=== PATIENT | female | born 1990 | race Hispanic/Latino ===

== ENCOUNTER 2020-10-27 21:45 | Emergency (ER) | payer MEDICAID, SELFPAY ==
[2020-10-27 21:50] VITALS: BP 119/72; PULSE 85; RESP 18; TEMP 36.6; O2SAT 100
--- NOTE | 2020-10-27 23:38 | PC.NURSE ---
Just informed by ED triage tech that she had been unable to draw labs.
[2020-10-28] LABS: Basophils Absolute Auto 0.1 K/mm3 (0.0-0.1); Basophils Percent Auto 0.5 % (0.2-1.2); Eosinophils Absolute Auto 0.2 K/mm3 (0-0.3); Eosinophils Percent Auto 1.9 % (0-4.4); Hematocrit 38.6 % (37.0-47.0); Immature Granulocyte Absolute 0.05 K/mm3 (0.00-0.031); Immature Granulocyte Percent A 0.4 % (0-0.5); Lymphocytes Percent Auto 30.9 % (18.3-44.2); Mean Corpuscular HGB Conc 33.7 g/dl (32-36); Mean Corpuscular Volume 91.9 fl (80-100); Mean Platelet Volume 10.7 fl (7.4-10.4); Monocytes Absolute Auto 0.7 K/mm3 (0.1-0.6); Monocytes Percent Auto 6.3 % (2.6-8.5); Neutrophils Absolute Auto 6.8 K/mm3 (1.3-6.7); Platelet Count Result 249 k/mm3 (150-375); Red Cell Distribution Width 12.5 % (11.5-14.5); White Blood Count 11.3 K/mm3 (4.5-10.0)
[2020-10-28 00:03] LABS: Add Urine Microscopic? YES; Appearance Urine Clear (Clear); Bilirubin Urine Negative (Negative); Blood Urine 3+ (Negative); Color Urine Straw (Yellow); Glucose Urine UA Negative (Negative); Ketones Urine Negative (Negative); Leukocyte Esterase Ur Negative LEU/UL (Negative); Nitrate Urine Negative (Negative); Protein Urine Negative (Negative); RBC Urine 0-2 /hpf (0-2); Specific Grav Ur 1.011 (1.001-1.035); Squamous Epithelial Cell Urine Rare /hpf (Few); Urobilinogen Urine Negative mg/dL (<2.0); WBC Urine 0-3 /hpf
[2020-10-28 00:10] LABS: Alanine Aminotransferase 12 U/L (4-35); Albumin Level 4.2 g/dL (3.5-5.1); Alkaline Phosphatase 54 U/L (38-126); Anion Gap 8 mmol/L (8-16); Aspartate Amino Transferase 20 U/L (14-36); Bilirubin,Total 0.3 mg/dL (0.2-1.3); Blood Urea Nitrogen 4 mg/dL (7-17); Carbon Dioxide 23 mmol/L (22-30); Chloride 105 mmol/L (98-107); Estimated Glomerular Filt Rate > 60; Glucose 97 mg/dL (65-110); Sodium 136 mmol/L (137-145)
--- NOTE | 2020-10-28 01:33 | PC.NURSE ---
EDP at bedside for ultrasound.
--- NOTE | 2020-10-28 01:39 | ED.GENADULT ---
HPI - General Adult General Chief complaint: Vaginal Bleeding Stated complaint: 14 weeks preg, bleeding Time Seen by Provider: 10/28/20 01:23 History of Present Illness HPI narrative: Patient is a 30-year-old female that presents the emergency department with chief complaint of vaginal bleeding. Patient reports she had some bleeding that was bright red blood was in the toilet and then she noticed blood on the toilet paper whenever she wiped. Patient states that this is her second the first 1 ended in a spontaneous miscarriage. The patient denies cramping reports that she has seen an INDUSTRIAL COMMERCIAL GROUNDSKEEPER but has not had an ultrasound as an outpatient. Patient states that she has no nausea no diarrhea. Related Data Allergies Allergy/AdvReac Type Severity Reaction Status Date / Time No Known Allergies Allergy Verified 10/27/20 22:00 Review of Systems Review of Systems: A 10 system review of systems was completed on the patient and is negative except for what is stated in the HPI. Nursing and ancillary documentation was reviewed. Exam Narrative: GENERAL: Well-appearing, well-nourished, and in no acute distress. HEAD: Normocephalic, atraumatic. EYES: PERRLA and EOMI. ENT: Nares clear, no rhinorrhea or epistaxis. Mucous membranes moist. NECK: Supple. CHEST: Clear to auscultation. No respiratory distress. HEART: Regular rate and rhythm. No murmur heard. Normal peripheral pulses. ABDOMEN: Soft, nontender, nondistended, normal active bowel sounds. EXTREMITIES: Normal range of motion. No edema. SKIN: Warm, dry, no rash. NEURO: No focal deficits. Alert and oriented x3. PSYCH: Normal mood and affect. Course Course Emergency Course: Bedside ultrasound was performed which showed intrauterine with positive cardiac activity Vital Signs Vital signs: Vital Signs Temperature 36.6 C 10/27/20 21:50 Pulse Rate 85 10/27/20 21:50 Respiratory Rate 18 10/27/20 21:50 Blood Pressure 119/72 10/27/20 21:50 Pulse Oximetry 100 10/27/20 21:50 Temperature 36.6 C 10/27/20 21:50 Pulse Rate 85 10/27/20 21:50 Respiratory Rate 18 10/27/20 21:50 Blood Pressure 119/72 10/27/20 21:50 Pulse Oximetry 100 10/27/20 21:50 Medical Decision Making Vital Signs Vital Signs: Vital Signs Temperature 36.6 C 10/27/20 21:50 Pulse Rate 85 10/27/20 21:50 Respiratory Rate 18 10/27/20 21:50 Blood Pressure 119/72 10/27/20 21:50 Pulse Oximetry 100 10/27/20 21:50 Temperature 36.6 C 10/27/20 21:50 Pulse Rate 85 10/27/20 21:50 Respiratory Rate 18 10/27/20 21:50 Blood Pressure 119/72 10/27/20 21:50 Pulse Oximetry 100 10/27/20 21:50 Lab Data Result diagrams: 10/27/20 23:53 10/27/20 23:53 Labs: Lab Results 10/27/20 10/27/20 10/27/20 Range/Units 23:53 23:53 23:53 WBC 11.3 H (4.5-10.0) K/mm3 RBC 4.20 (4.2-5.4) M/mm3 Hgb 13.0 (12.0-15.0) g/dL Hct 38.6 (37.0-47.0) % MCV 91.9 (80-100) fl MCH 31.0 (26-34) pg MCHC 33.7 (32-36) g/dl RDW 12.5 (11.5-14.5) % Plt Count 249 (150-375) k/mm3 MPV 10.7 H (7.4-10.4) fl Immature Gran % (Auto) 0.4 (0-0.5) % Neut % (Auto) 60.0 (45.5-73.1) % Lymph % (Auto) 30.9 (18.3-44.2) % [place] % (Auto) 6.3 (2.6-8.5) % Eos % (Auto) 1.9 (0-4.4) % Baso % (Auto) 0.5 (0.2-1.2) % Lymph # (Auto) 3.50 H (0.9-3.2) K/mm3 [place] # (Auto) 0.7 H (0.1-0.6) K/mm3 Eos # (Auto) 0.2 (0-0.3) K/mm3 Baso # (Auto) 0.1 (0.0-0.1) K/mm3 Abs Immat Gran (auto) 0.05 H (0.00-0.031) K/mm3 Absolute Neuts (auto) 6.8 H (1.3-6.7) K/mm3 Absolute Nucleated RBC 0.0 (0.0-0.012) K/mm3 Nucleated RBC % 0.0 (0.0-0.2) % Sodium 136 L (137-145) mmol/L Potassium 4.0 (3.4-5.0) mmol/L Chloride 105 (98-107) mmol/L Carbon Dioxide 23 (22-30) mmol/L Anion Gap 8 (8-16) mmol/L BUN 4 L (7-17) mg/dL Creatinine 0.50 L (0.7-1
[2020-10-28 01:54] VITALS: BP 112/71; BP 115/76; PULSE 73
[2020-10-28 01:56] VITALS: BP 102/70; PULSE 78
== END 2020-10-28 02:10 | disposition home or self-care (01) ==
PROVIDERS: Emergency Provider Emergency Medicine
DX: O20.0 Threatened abortion (principal); Z3A.14 14 weeks gestation of pregnancy
CPT/HCPCS: 36415; 80053; 81001; 84702; 85025; 85461; 99283

== ENCOUNTER 2020-11-26 15:30 | Outpatient (CLI) | payer MEDICAID, SELFPAY ==
--- NOTE | ~2020-11-26 | US_ITS ---
EXAMINATION: US OB follow up DATE: 11/26/2020 16:05 INDICATION: Gestational dating TECHNIQUE: Real-time transabdominal obstetric ultrasound. FINDINGS: Gestational dating There is a single living fetus in transverse presentation. The placenta is anterior without placenta previa. cardiac activity and movement is noted with a heart rate of 150 to beats per minute . The amniotic fluid volume is subjectively normal. The following biometric data were obtained: BPD: 29mm corresponds to gestational age 15 weeks 1 days. Head circumference: 103mm corresponds to gestational age 14 weeks 6 days. Abdominal circumference: 85mm corresponds to gestational age 14 weeks 6 days. Femur length: 16mm corresponds to gestational age 14 weeks 5 days. Estimated weight: 107grams +/- 16grams.] IMPRESSION: 1. Single living intrauterine in transverse presentation with an estimated gestational age of 14 weeks 6 days by current ultrasound. EDC by current ultrasound is 05/21/2021 2. Normal placenta. Reviewed, dictated and finalized at location B. IMPRESSION: 1. Single living intrauterine in transverse presentation with an est imated gestational age of 14 weeks 6 days by current ultrasound. EDC by current ultrasound is 05/21/2021 2. Normal placenta.
== END 2020-11-26 15:31 | disposition home or self-care (01) ==
LOC: ANHIMG 15:34
PROVIDERS: Visit Provider Physician Assistant
DX: Z34.92 Encounter for supervision of normal pregnancy, unspecified, second trimester (principal); Z3A.14 14 weeks gestation of pregnancy
CPT/HCPCS: 76816

== ENCOUNTER 2021-01-07 17:45 | Observation (INO) | payer OTHER, SELFPAY ==
[2021-01-07 18:28] VITALS: BP 115/89; PULSE 97
--- NOTE | 2021-01-07 18:43 | WPDANESEPP ---
Anes - Eval Pre Procedure Procedure: Labor epidural Date/Time: 01/07/21 18:43 Surgeon: janice Preop Diagnosis: Abd pain with contractions Pre Op Diagnosis: Bleeding/cramping Patient Data Age: 30 Gender: F Height: 1.55 m Weight: Last Vital Signs Pulse 97 01/07/21 18:28 BP 115/89 01/07/21 18:28 Allergies Allergy/AdvReac Type Severity Reaction Status Date / Time No Known Allergies Allergy Verified 10/27/20 22:00 HCG: positive Patient hx anesthesia problems: none Family hx anesthesia problems: none Results Review: All pre-operative results and documents have been reviewed as part of the pre-operative evaluation. Exam Day of Procedure 01/07/21 18:43
--- NOTE | 2021-01-23 15:57 | PM.OBTRLD ---
OB - Triage/Final Diagnosis Visit Information Comments/Additional reasons for admission: I have assessed the risk for this patient, Bhavya Velazquez, and determined that she would benefit from observation care. Final Diagnosis (1) Cramping affecting , antepartum: Code(s): O26.899 - Other specified related conditions, unspecified trimester; R10.9 - Unspecified abdominal pain Status: Acute (2) Vaginal bleeding affecting early : Code(s): O20.9 - Hemorrhage in early , unspecified Status: Acute
== END 2021-01-07 19:30 | disposition home or self-care (01) ==
PROVIDERS: Admitting Provider Obstetrics & Gynecology; Visit Provider Obstetrics & Gynecology
DX: O46.92 Antepartum hemorrhage, unspecified, second trimester (principal); O26.892 Other specified pregnancy related conditions, second trimester; R10.9 Unspecified abdominal pain; Z3A.20 20 weeks gestation of pregnancy
CPT/HCPCS: G0378; G0379

== ENCOUNTER 2021-01-16 16:13 | Outpatient (CLI) | payer OTHER, SELFPAY ==
--- NOTE | ~2021-01-16 | US_ITS ---
EXAMINATION: US OB /maternal detail DATE: 01/16/2021 17:51 INDICATION: Encounter for supervision of normal second trimester . TECHNIQUE: Real-time ultrasound of the pelvis was performed. COMPARISON: 11/26/2020 FINDINGS: There is a single living fetus in vertex presentation. The placenta is anterior. heart rate is 141 beats per minute (bpm). cardiac activity and movement are noted. The amniotic fluid index is subjectively normal. The following anatomy was identified as normal: 4 chamber heart 3 vessel cord cord insertion kidneys urinary bladder stomach spine diaphragm ventricles cisterna magna cerebellum The following biometric data were obtained: Biparietal diameter (BPD): 5.3 cm; head circumference (HC): 19.6 cm; abdominal circumference (AC): 17 .3 cm; femur length (FL): 3.8 cm. These measurements are concordant. Estimated weight is 480 g +/- 72 g, which correlates with the 44th percentile when 05/21/2021 is used as estimated date of delivery. As single measurements, these parameters are each equal to the following estimated gestational ages w ith ranges of +/- 2 standard deviations: BPD: 22 weeks 0 days +/- 1 weeks 5 days. HC: 21 weeks 6 days +/- 1 weeks 3 days. AC: 22 weeks 2 days +/- 2 weeks 0 days. FL: 22 weeks 1 days +/- 1 weeks 6 days. estimated gestational age based solely on measurements from this exam is 22 weeks 1 days +/- 1 weeks 4 days. IMPRESSION: 1. Single living fetus in vertex presentation. 2. Estimated weight is 480 g +/- 72 g, which correlates with the 44th percentile when 05/21/2021 is used as estimated date of delivery. Reviewed, dictated and finalized at location A. ULOSKELETAL PHYSIOTHERAPIST IMPRESSION: 1. Single living fetus in vertex presentation. 2. Estimated weight is 480 g +/- 72 g, which correlates with the 44th per centile when 05/21/2021 is used as estimated date of delivery.
== END 2021-01-16 16:14 | disposition home or self-care (01) ==
LOC: ANHIMG 16:26
PROVIDERS: PCP Obstetrics & Gynecology; Visit Provider Obstetrics & Gynecology
DX: Z34.90 Encounter for supervision of normal pregnancy, unspecified, unspecified trimester (principal); Z3A.22 22 weeks gestation of pregnancy
CPT/HCPCS: 76805

== ENCOUNTER 2021-03-07 18:12 | Emergency (ER) | payer OTHER, SELFPAY ==
[2021-03-07 18:55] VITALS: BP 112/82; PULSE 109; RESP 14; TEMP 36.8; O2SAT 100
[2021-03-07 21:34] VITALS: BP 111/67; PULSE 114; RESP 18; TEMP 37.4; O2SAT 100
[2021-03-07 22:59] VITALS: BP 113/83; PULSE 99; RESP 18; O2SAT 95
--- NOTE | 2021-03-07 23:03 | ED.GENADULT ---
HPI - General Adult General Chief complaint: Unspecified Stated complaint: headache, fever, side pain Time Seen by Provider: 03/07/21 22:47 History of Present Illness HPI narrative: Patient is a 30-year-old female that presents the emergency department with chief complaint of right flank pain. Patient states over the last 3 days she has been having pain in her right flank 7 urinary frequency and dysuria. Patient states she is also had a fever and headache patient states that she is approximately 29 weeks . Patient denies bleeding denies loss of fluid denies current abdominal pain but does state that she has had some abdominal cramping that was last present this morning. Related Data Allergies Allergy/AdvReac Type Severity Reaction Status Date / Time No Known Allergies Allergy Verified 10/27/20 22:00 Review of Systems Review of Systems: A 10 system review of systems was completed on the patient and is negative except for what is stated in the HPI. Nursing and ancillary documentation was reviewed. Exam Narrative: GENERAL: Well-appearing, well-nourished, and in no acute distress. HEAD: Normocephalic, atraumatic. EYES: PERRLA and EOMI. ENT: Nares clear, no rhinorrhea or epistaxis. Mucous membranes moist. NECK: Supple. CHEST: Clear to auscultation. No respiratory distress. HEART: Regular rate and rhythm. No murmur heard. Normal peripheral pulses. ABDOMEN: Soft, nontender, gravid, normal active bowel sounds. Tenderness to palpation of the right flank EXTREMITIES: Normal range of motion. No edema. SKIN: Warm, dry, no rash. NEURO: No focal deficits. Alert and oriented x3. PSYCH: Normal mood and affect. Course Course Emergency Course: Patient is feeling much better at this time Vital Signs Vital signs: Vital Signs Temperature 36.8 C 03/07/21 18:55 Pulse Rate 109 H 03/07/21 18:55 Respiratory Rate 14 03/07/21 18:55 Blood Pressure 112/82 03/07/21 18:55 Pulse Oximetry 100 03/07/21 18:55 Temperature 37.4 C 03/07/21 21:34 Pulse Rate 99 03/07/21 22:59 Respiratory Rate 18 03/07/21 22:59 Blood Pressure 113/83 03/07/21 22:59 Pulse Oximetry 95 03/07/21 22:59 Medical Decision Making Vital Signs Vital Signs: Vital Signs Temperature 36.8 C 03/07/21 18:55 Pulse Rate 109 H 03/07/21 18:55 Respiratory Rate 14 03/07/21 18:55 Blood Pressure 112/82 03/07/21 18:55 Pulse Oximetry 100 03/07/21 18:55 Temperature 37.4 C 03/07/21 21:34 Pulse Rate 99 03/07/21 22:59 Respiratory Rate 18 03/07/21 22:59 Blood Pressure 113/83 03/07/21 22:59 Pulse Oximetry 95 03/07/21 22:59 Lab Data Result diagrams: 03/07/21 23:31 03/07/21 23:31 Labs: Lab Results 03/07/21 03/07/21 03/07/21 Range/Units 23:06 23:31 23:31 WBC 14.5 H (4.5-10.0) K/mm3 RBC 4.26 (4.2-5.4) M/mm3 Hgb 13.2 (12.0-15.0) g/dL Hct 38.9 (37.0-47.0) % MCV 91.3 (80-100) fl MCH 31.0 (26-34) pg MCHC 33.9 (32-36) g/dl RDW 13.3 (11.5-14.5) % Plt Count 158 (150-375) k/mm3 MPV 10.6 H (7.4-10.4) fl Immature Gran % (Auto) 0.8 H (0-0.5) % Neut % (Auto) 81.1 H (45.5-73.1) % Lymph % (Auto) 9.5 L (18.3-44.2) % [place] % (Auto) 8.2 (2.6-8.5) % Eos % (Auto) 0.1 (0-4.4) % Baso % (Auto) 0.3 (0.2-1.2) % Lymph # (Auto) 1.37 (0.9-3.2) K/mm3 [place] # (Auto) 1.2 H (0.1-0.6) K/mm3 Eos # (Auto) 0.0 (0-0.3) K/mm3 Baso # (Auto) 0.1 (0.0-0.1) K/mm3 Abs Immat Gran (auto) 0.12 H (0.00-0.031) K/mm3 Absolute Neuts (auto) 11.7 H (1.3-6.7) K/mm3 Absolute Nucleated RBC 0.0 (0.0-0.012) K/mm3 Nucleated RBC % 0.0 (0.0-0.2) % Sodium 134 L (137-145) mmol/L Potassium 3.8 (3.4-5.0) mmol/L Chloride 102 (98-107) mmol/L Carbon Dioxide 23 (22-30) mmol/L Anion Gap 9 (8-16) mmol/L BUN 5 L (7-17) mg/dL Creatinine 0.50 L (0.7-1.0) mg/dL Estim Creat Clear Calc
[2021-03-07 23:25] LABS: Add Urine Microscopic? YES; Appearance Urine Cloudy (Clear); Bacteria Urine 3+ /hpf; Bilirubin Urine Negative (Negative); Blood Urine Negative (Negative); Color Urine Yellow (Yellow); Glucose Urine UA 1+ mg/dL (Negative); Ketones Urine 1+ mg/dL (Negative); Leukocyte Esterase Ur 3+ LEU/UL (Negative); Nitrate Urine Negative (Negative); Protein Urine 1+ mg/dL (Negative); Specific Grav Ur 1.009 (1.001-1.035); Squamous Epithelial Cell Urine Moderate /hpf (Few); Urobilinogen Urine Negative mg/dL (<2.0); WBC Clumps Urine Present /HPF; WBC Urine >75 /hpf
[2021-03-07] MEDS: ACETAMINOPHEN 500 MG TABLET 1000 MG PO (23:32)
[2021-03-07] MEDS: SODIUM CHLORIDE 0.9% IV 1,000 ML 999 ML IV CONT (23:32)
[2021-03-07 23:40] LABS: Basophils Absolute Auto 0.1 K/mm3 (0.0-0.1); Basophils Percent Auto 0.3 % (0.2-1.2); Eosinophils Percent Auto 0.1 % (0-4.4); Hematocrit 38.9 % (37.0-47.0); Hemoglobin 13.2 g/dL (12.0-15.0); Immature Granulocyte Absolute 0.12 K/mm3 (0.00-0.031); Immature Granulocyte Percent A 0.8 % (0-0.5); Lymphocytes Absolute Auto 1.37 K/mm3 (0.9-3.2); Lymphocytes Percent Auto 9.5 % (18.3-44.2); Mean Corpuscular HGB Conc 33.9 g/dl (32-36); Mean Corpuscular Volume 91.3 fl (80-100); Mean Platelet Volume 10.6 fl (7.4-10.4); Monocytes Absolute Auto 1.2 K/mm3 (0.1-0.6); Monocytes Percent Auto 8.2 % (2.6-8.5); Neutrophils Absolute Auto 11.7 K/mm3 (1.3-6.7); Neutrophils Percent Auto 81.1 % (45.5-73.1); Platelet Count Result 158 k/mm3 (150-375); Red Blood Count 4.26 M/mm3 (4.2-5.4); Red Cell Distribution Width 13.3 % (11.5-14.5); White Blood Count 14.5 K/mm3 (4.5-10.0)
[2021-03-07] MEDS: METOCLOPRAMIDE HCL INJ 10 MG/2 ML VIAL IV PUSH (23:42)
[2021-03-07 23:52] LABS: Alanine Aminotransferase 13 U/L (4-35); Albumin Level 4.1 g/dL (3.5-5.1); Alkaline Phosphatase 93 U/L (38-126); Anion Gap 9 mmol/L (8-16); Aspartate Amino Transferase 18 U/L (14-36); Bilirubin,Total 0.7 mg/dL (0.2-1.3); Blood Urea Nitrogen 5 mg/dL (7-17); Carbon Dioxide 23 mmol/L (22-30); Chloride 102 mmol/L (98-107); Estimated Glomerular Filt Rate > 60; Glucose 102 mg/dL (65-110); Potassium 3.8 mmol/L (3.4-5.0); Sodium 134 mmol/L (137-145)
--- NOTE | 2021-03-07 23:53 | PC.NURSE ---
Ob zinc furnace charger notified for eval of movement and heart tones per ermd request. Will come to eval and monitor the infant.
[2021-03-08 03:02] VITALS: BP 93/66; PULSE 90; RESP 18; O2SAT 99
== END 2021-03-08 03:15 | disposition home or self-care (01) ==
PROVIDERS: Emergency Provider Emergency Medicine; PCP Physician Assistant
DX: O99.891 Other specified diseases and conditions complicating pregnancy (principal); N12 Tubulo-interstitial nephritis, not specified as acute or chronic; Z3A.29 29 weeks gestation of pregnancy
CPT/HCPCS: 36415; 80053; 81001; 85025; 87077; 87086; 87088; 87186; 87804; 96365; 96375; 99284; A9270; J0696; J2765; J7030

== ENCOUNTER 2021-04-12 13:32 | Outpatient (CLI) | payer OTHER, SELFPAY ==
--- NOTE | ~2021-04-12 | US_ITS ---
EXAMINATION: US OB follow up DATE: 04/12/2021 14:31 INDICATION: Catheter for normal supervision . TECHNIQUE: Real-time transabdominal obstetric ultrasound. FINDINGS: Comparison to multiple prior studies sequentially, with oldest reviewed study dated 2020. There is a single living fetus in breech presentation. The placenta is anterior/fundal without place nta previa. cardiac activity and movement is noted with a heart rate of 138 beats per minute. T he amniotic fluid volume is normal. LENKA measures 10.3 cm. The following biometric data were obtained: BPD: 84mm corresponds to gestational age 33 weeks 5 days. Head circumference: 314mm corresponds to gestational age 35 weeks 2 days. Abdominal circumference: 295mm corresponds to gestational age 33 weeks 3 days. Femur length: 61mm corresponds to gestational age 31 weeks 5 days. Estimated weight: 2130grams +/- 320grams, 14%.] IMPRESSION: 1. Single living intrauterine in breech presentation with an estimated gestational age of 33 weeks 4 days by inititial ultrasound. Appropriate interval growth. 2. Normal placenta. Reviewed, dictated and finalized at location A. T FURNACE AUXILIARIES SUPERVISOR IMPRESSION: 1. Single living intrauterine in breech presentation with an estimat ed gestational age of 33 weeks 4 days by inititial ultrasound. Appropriate int erval growth. 2. Normal placenta.
== END 2021-04-12 13:33 | disposition home or self-care (01) ==
LOC: ANHIMG 13:39
PROVIDERS: PCP Physician Assistant; Visit Provider Physician Assistant
DX: Z34.93 Encounter for supervision of normal pregnancy, unspecified, third trimester (principal); Z3A.33 33 weeks gestation of pregnancy
CPT/HCPCS: 76816

== ENCOUNTER 2022-01-10 18:40 | Emergency (ER) | payer OTHER, SELFPAY ==
--- NOTE | ~2022-01-10 | CT_ITS ---
EXAMINATION: CT BRAIN W/O DATE: 01/10/2022 19:35 INDICATION: Dizziness TECHNIQUE: Computed tomography (CT) of the head was performed without intravenous contrast. The dose- length product was 605.33 mGy-cm. Automated exposure control and iterative reconstruction technique w ere employed. COMPARISON: No prior studies for comparison. FINDINGS: Normal brain parenchymal volume for age. Normal gtz-white differentiation. No acute intrac ranial hemorrhage, infarction, mass or mass effect. No ventriculomegaly or midline shift. Midline sagittal images demonstrate a normal corpus callosum, c raniovertebral junction and sella turcica. Basilar cisterns are patent. Paranasal sinuses and mastoids are pneumatized. No depressed skull fractures. IMPRESSION: 1. No acute intracranial abnormality. Reviewed, dictated and finalized at location A. GE RUNNER
--- NOTE | ~2022-01-10 | XR_ITS ---
EXAMINATION: XR chest 1V 01/10/2022 19:43 INDICATION: Dizziness PROCEDURE: AP view of the chest COMPARISON: No prior studies for comparison. FINDINGS: The lungs are clear. The cardiomediastinal silhouette is within normal limits. There are no pleural effusions. There is no pneumothorax suspected. IMPRESSION: 1: NO ACUTE CARDIOPULMONARY DISEASE. Reviewed, dictated and finalized at location A. AGE TRUCK DISPATCHER
[2022-01-10 18:42] VITALS: BP 124/70; PULSE 95; RESP 16; TEMP 36.9; O2SAT 100
[2022-01-10 19:10] LABS: Basophils Absolute Auto 0.1 K/mm3 (0.0-0.1); Basophils Percent Auto 0.4 % (0.2-1.2); Eosinophils Percent Auto 0.3 % (0-4.4); Hematocrit 43.2 % (37.0-47.0); Hemoglobin 14.5 g/dL (12.0-15.0); Immature Granulocyte Absolute 0.04 K/mm3 (0.00-0.031); Immature Granulocyte Percent A 0.3 % (0-0.5); Lymphocytes Absolute Auto 3.43 K/mm3 (0.9-3.2); Lymphocytes Percent Auto 25.4 % (18.3-44.2); Mean Corpuscular HGB Conc 33.6 g/dl (32-36); Mean Corpuscular Volume 89.3 fl (80-100); Mean Platelet Volume 10.6 fl (7.4-10.4); Monocytes Absolute Auto 0.6 K/mm3 (0.1-0.6); Monocytes Percent Auto 4.4 % (2.6-8.5); Neutrophils Absolute Auto 9.3 K/mm3 (1.3-6.7); Neutrophils Percent Auto 69.2 % (45.5-73.1); Platelet Count Result 286 k/mm3 (150-375); Red Blood Count 4.84 M/mm3 (4.2-5.4); Red Cell Distribution Width 13.5 % (11.5-14.5); White Blood Count 13.5 K/mm3 (4.5-10.0)
[2022-01-10 19:22] LABS: Alanine Aminotransferase 30 U/L (6-35); Albumin Level 4.7 g/dL (3.5-5.1); Alkaline Phosphatase 71 U/L (38-126); Anion Gap 10 mmol/L (8-16); Aspartate Amino Transferase 26 U/L (14-36); Bilirubin,Total 0.4 mg/dL (0.2-1.3); Blood Urea Nitrogen 11 mg/dL (7-17); Calcium 9.1 mg/dL (8.4-10.2); Carbon Dioxide 22 mmol/L (22-30); Chloride 106 mmol/L (98-107); Estimated CRCL calculation 108 ml/min; Estimated Glomerular Filt Rate > 60; Glucose 105 mg/dL (65-110); Lipase 46 U/L (23-300); Potassium 4.1 mmol/L (3.4-5.0); Sodium 138 mmol/L (137-145)
--- NOTE | 2022-01-10 19:23 | ED.GENADULT ---
HPI - General Adult General Chief complaint: Nausea/Vomiting/Diarrhea <DO Clayton Flowers Last Filed: 01/11/22 01:45> Stated complaint: Dizzy x2 Days <Ben Romero DO - Last Filed: 01/11/22 01:45> Time Seen by Provider: 01/10/22 18:59 <Ben Romero DO - Last Filed: 01/11/22 01:45> Source: RN notes reviewed <Ben Romero DO - Last Filed: 01/11/22 01:45> History of Present Illness HPI narrative: Patient presents emergency room from home for dizziness. Patient states dizziness has been ongoing for the past 2 days. States it feels like the room is spinning. States has been associated with nausea and vomiting. States that she feels dizzy at all times but worse when she gets up and moves she denies any vision changes denies any numbness or tingling the extremities she denies any rhinorrhea sore throat cough or any other symptoms. States she does feel she has fluid behind her ears states has not taken thing for the symptoms <Ben Romero DO - Last Filed: 01/11/22 01:45> Related Data Allergies/adverse reactions: Allergies Allergy/AdvReac Type Severity Reaction Status Date / Time No Known Allergies Allergy Verified 01/10/22 18:45 <Ben Romero DO - Last Filed: 01/11/22 01:45> Review of Systems Review of Systems: Gen.: Denies fevers or chills Eyes: Denies eye pain or visual change ENT: Denies congestion Respiratory: Denies shortness of breath or cough CV: Denies chest pain or palpitations GI: Denies abdominal pain nausea, emesis or diarrhea Musculoskeletal: Denies back pain or muscle pain Neuro: Reports dizziness Skin: Denies rash Except as documented, all other systems reviewed and negative <DO Clayton Flowers Last Filed: 01/11/22 01:45> PMFSH Past Medical History Medical History: Medical History (Updated 01/11/22 @ 01:44 by Ben Romero DO) Patient denies significant medical history <DO Clayton Flowers Last Filed: 01/11/22 01:45> Social History Social History: Social History (Updated 01/10/22 @ 19:23 by Ben Romero DO) Smoking status: Never smoker <Ben Romero DO - Last Filed: 01/11/22 01:45> Exam Narrative: APPEARANCE: No acute distress, nontoxic, resting in bed EYES: EOMI, PERRL HEENT: Normocephalic, atraumatic, bilateral TMs not able to be visualized secondary to cerumen impaction bilaterally, nares patent RESPIRATORY: No respiratory distress Clear to auscultation bilaterally with no rhonchi wheezing or rales. CARDIOVASCULAR: Regular rate and rhythm without murmurs rubs or gallops. ABDOMINAL: Soft, nontender, nondistended, no rebound or guarding MUSCULOSKELETAl: Moves all extremities. No clubbing, cyanosis or edema. NEURO: Awake and alert x 4. Following commands, speech normal, no focal deficits strength out of 5 bilateral upper and lower extremities SKIN:: Warm, dry. No rashes lesions or abrasions PSYCHIATRIC: Normal affect/mood, <Ben Romero DO - Last Filed: 01/11/22 01:45> Course Course Emergency Course: Patient has family present that is able to translate Patient with cerumen removal and irrigation in the bilateral ears following this TMs are normal in appearance States dizziness is improved with medication. Patient able to ambulate in the emergency department with no assistance Discussed with patient results of workup and diagnosis. Discussed need for follow-up with primary care, proper use of medication, and reasons to return to the emergency department. Patient understands and agrees to current treatment plan <Ben Romero DO - Last Filed: 01/11/22 01:45> Vital Signs Vital signs: Vital Signs Temperature 98.4 F 01/10/22 18:42 Pulse Rate 95 01/10/22 18:42 Respiratory Rate 16 01/10/22 18:42 Blood Pressure 124/70 01/10/22 18:42 Pulse Oximetry 100 01/10/22 18:42 Oxygen Delivery Room Air 01/10/22 18:42 Temperature 98.4 F 01/10/22 18:
--- NOTE | 2022-01-10 19:25 | ECG_ITS ---
Measurements Intervals [place] Rate: 86 P: 8 FL: 143 QRS: 5 QRSD: 85 T: 1 QT: 364 QTc: 437 Interpretive Statements SINUS RHYTHM BASELINE ARTIFACT NONSPECIFIC T-WAVE ABNORMALITY BORDERLINE ECG NO PREVIOUS ECG AVAILABLE FOR COMPARISON Electronically Signed On 01-12-2022 13:30:34 IRON MOLDER HELPER by Loyd Acosta M.D.
[2022-01-10] MEDS: SODIUM CHLORIDE 0.9% IV 1,000 ML 999 ML IV CONT (19:26)
[2022-01-10] MEDS: ONDANSETRON INJ 4 MG/2 ML VIAL IV PUSH (19:26)
[2022-01-10] MEDS: MECLIZINE HCL 25 MG TABLET PO (19:43)
[2022-01-10 20:47] LABS: Bacteria Urine Trace /hpf; Mucus Urine Moderate /lpf; Squamous Epithelial Cell Urine Many /hpf (Few); WBC Urine 0-3 /hpf
[2022-01-10 20:49] LABS: Add Urine Microscopic? YES; Appearance Urine Clear (Clear); Bilirubin Urine 1+ (Negative); Blood Urine Trace-intact (Negative); Color Urine Yellow (Yellow); Glucose Urine UA Negative (Negative); Ketones Urine 4+ mg/dL (Negative); Leukocyte Esterase Ur Negative LEU/UL (Negative); Nitrate Urine Negative (Negative); Protein Urine 1+ mg/dL (Negative); Specific Grav Ur >= 1.030 (1.001-1.035); Urobilinogen Urine 0.2 mg/dL (<2.0)
[2022-01-10 22:41] VITALS: BP 101/57; PULSE 70
[2022-01-10 22:42] VITALS: BP 103/65; BP 107/82; PULSE 73; PULSE 94
[2022-01-10] MEDS: diazePAM (*CRX) 2 MG TABLET PO (23:08)
[2022-01-11 00:26] VITALS: BP 88/54; PULSE 68; RESP 16; O2SAT 98
[2022-01-11 00:40] VITALS: BP 100/62; PULSE 73; RESP 16; O2SAT 100
[2022-01-11] MEDS: SODIUM CHLORIDE 0.9% IV 1,000 ML 999 ML IV CONT (00:48)
== END 2022-01-11 02:04 | disposition home or self-care (01) ==
PROVIDERS: Emergency Provider Emergency Medicine; PCP Physician Assistant
DX: R42 Dizziness and giddiness (principal); H61.23 Impacted cerumen, bilateral
CPT/HCPCS: 36415; 69210; 70450; 71045; 80053; 81001; 81025; 83690; 85025; 93005; 96361; 96374; 99284; A9270; J2405; J7030

== ENCOUNTER 2022-01-28 19:03 | Emergency (ER) | payer OTHER, SELFPAY ==
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
[2022-01-28 19:36] VITALS: BP 119/96; PULSE 104; RESP 14; TEMP 36.4; O2SAT 100
[2022-01-28 22:20] VITALS: BP 128/74; PULSE 74; RESP 16; TEMP 36.8; O2SAT 100
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
== END 2022-01-28 22:48 | disposition home or self-care (01) ==
PROVIDERS: Emergency Provider Nurse Practitioner Family; PCP Physician Assistant
DX: S39.012A Strain of muscle, fascia and tendon of lower back, initial encounter (principal); V49.40XA Driver injured in collision with unspecified motor vehicles in traffic accident, initial encounter
CPT/HCPCS: 72100; 81025; 99283

== ENCOUNTER 2023-06-14 22:48 | Emergency (ER) | payer SELFPAY ==
[2023-06-14 22:51] VITALS: BP 121/80; PULSE 86; RESP 15; TEMP 36.2; O2SAT 100
--- NOTE | 2023-06-14 23:02 | ECG_ITS ---
SEE SCANNED COPY FOR CONFIRMED REPORT MTDD
--- NOTE | 2023-06-14 23:20 | ED.GENADULT ---
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 Patient reports that she was at home tonight when this started. This episode was associated headache, bilateral ear fullness/loss of hearing, bilateral upper and lower extremity tingling. Endorses nausea but no vomiting. She reports that this episode lasted for about 20 minutes and started just prior to arrival. Denies any associated chest pain, abdominal pain. Denies any recent illness. Reports she had a similar episode on Thursday night while at work that lasted a few minutes. Patient reports that she has been under a lot of stress with her family. She reports that her significant other is being diagnosed with bipolar and not taking his medications. She reports that she is juggling work, taking care of her kids and taking care of him. All of this is quite stressful at the moment for her. Currently she feels completely asymptomatic. Related Data Allergies Allergy/AdvReac Type Severity Reaction Status Date / Time No Known Allergies Allergy Verified 01/10/22 18:45 Review of Systems Review of Systems: All systems as dictated in [facility] Past Medical History Medical History Patient denies significant medical history Social History Social History Smoking status: Never smoker Exam Narrative: GENERAL: Well-appearing, well-nourished, and in no acute distress. HEAD: Normocephalic, atraumatic. EYES: PERRLA and EOMI. ENT: Nares clear, no rhinorrhea or epistaxis. Mucous membranes moist. Oropharynx without tonsillar hypertrophy exudate or other lesions. NECK: Supple. No adenopathy or masses. CHEST: No respiratory distress. Clear to auscultation. No wheezes rales or rhonchi HEART: Regular rate and rhythm. No murmur heard. Normal peripheral pulses. ABDOMEN: Soft, nontender, nondistended, normal active bowel sounds. MSK: Normal range of motion. No edema. SKIN: Warm, dry, no rash. NEURO: Alert and oriented x3. No focal deficits. PSYCH: Normal mood and affect. Course Vital Signs Vital signs: Vital Signs Temperature 97.2 F L 06/14/23 22:51 Pulse Rate 86 06/14/23 22:51 Respiratory Rate 15 06/14/23 22:51 Blood Pressure 121/80 06/14/23 22:51 Pulse Oximetry 100 06/14/23 22:51 Oxygen Delivery Room Air 06/14/23 22:51 Temperature 97.2 F L 06/14/23 22:51 Pulse Rate 86 06/14/23 22:51 Respiratory Rate 15 06/14/23 22:51 Blood Pressure 121/80 06/14/23 22:51 Pulse Oximetry 100 06/14/23 22:51 Oxygen Delivery Room Air 06/14/23 22:51 Medical Decision Making MDM Narrative Medical decision making narrative: This is a 32-year-old female who presents to the ED anxiety attack. Vitals are normal. ECG shows sinus rhythm with no acute ischemic findings. Symptoms and presentation are consistent with panic attack. She has been undergoing great stress recently with her family. I discussed with her that my impression of her symptoms are anxiety attack. Shared decision making to avoid any further workup at this time, as she is feeling completely asymptomatic. She is comfortable with discharge home and following up with her PCP who she has appointment with a couple of weeks. Prescribed hydroxyzine in the meantime. Pt will be discharged in stable condition. Return precautions given and supportive measures discussed. Pt is understanding and agreeable with plan for discharge and follow-up with PCP. Vital Signs Vital Signs: Vital Signs Temperature 97.2 F L 06/14/23 22:51 Pulse Rate
== END 2023-06-15 00:04 | disposition home or self-care (01) ==
PROVIDERS: Emergency Provider Physician Assistant; PCP Physician Assistant
DX: F41.9 Anxiety disorder, unspecified (principal); R94.31 Abnormal electrocardiogram [ECG] [EKG]
CPT/HCPCS: 93005; 99283